=== PATIENT | male | born 1960 | race Caucasian/White ===

== ENCOUNTER → 2017-10-19 | Outpatient (REF) | payer OTHER | LOC: M LAB REF 13:12 | PROVIDERS: ATTEND Internal Medicine Medical Oncology | DX: C91.10 Chronic lymphocytic leukemia of B-cell type not having achieved remission (principal) ==

== ENCOUNTER → 2018-02-08 | Outpatient (CLI) | payer OTHER ==
[~2018-02-08] MED LIST: GASTROGRAFIN SOLUTION 30ML (Q9963) As Ordered; ISOVUE-370 76% 100ML VIAL (Q9967) As Ordered
[2018-02-08 10:26] LABS: HEMATOCRIT 43.7 % (42.0-52.0); HEMOGLOBIN 14.7 g/dl (14.0-18.0); MEAN CORPUSCULAR HEMOGLOBIN 30.9 pg (27.0-33.0); MEAN CORPUSCULAR HGB CONC 33.6 g/dl (32.0-36.5); RED BLOOD COUNT 4.75 10^6/uL (4.30-6.10); RED CELL DISTRIBUTION WIDTH 13.2 % (11.5-14.5)
[2018-02-08 10:33] LABS: ADD MANUAL DIFFER YES; DIFF SLIDE NUMBER 177; PLATELET COUNT, AUTOMATED 98 10^3/uL (150-450); POS COUNT POS FLAG; POSITIVE DIFF POS FLAG; POSITIVE MORPH POS FLAG; WHITE BLOOD COUNT 69.9 10^3/uL (4.0-10.0)
[2018-02-08 10:40] LABS: IMMATURE PLATELET FRACTION % 10.2 % (0.0-10.9)
[2018-02-08 10:54] LABS: ALBUMIN 4.1 GM/DL (3.2-5.2); ALBUMIN/GLOBULIN RATIO 1.95 (1.00-1.93); ALKALINE PHOSPHATASE 51 U/L (45-117); ALT/SGPT 21 U/L (12-78); ANION GAP 6 MEQ/L (8-16); AST/SGOT 15 U/L (7-37); BILIRUBIN,TOTAL 0.4 MG/DL (0.2-1.0); BLOOD UREA NITROGEN 13 MG/DL (7-18); CALCIUM LEVEL 8.3 MG/DL (8.8-10.2); CARBON DIOXIDE LEVEL 26 MEQ/L (21-32); CHLORIDE LEVEL 112 MEQ/L (98-107); CREATININE FOR GFR 0.98 MG/DL (0.70-1.30); GLOMERULAR FILTRATION RATE > 60.0 (>49); GLUCOSE, FASTING 89 MG/DL (70-100); LDH LACTATE DEHYDROGENASE 176 U/L (87-241); POTASSIUM SERUM 4.8 MEQ/L (3.5-5.1); SODIUM LEVEL 144 MEQ/L (136-145); TOTAL PROTEIN 6.2 GM/DL (6.4-8.2)
[2018-02-08 10:56] LABS: ATYPICAL LYMPH 10 % (0-5); LYMPHOCYTES 70 % (16-52); MONOCYTES 7 % (0-8); NEUTROPHILS 13 % (35-75)
[2018-02-08 10:57] LABS: ANISOCYTOSIS 1+; PLATELET ESTIMATE DECREASED (NORMAL)
[2018-02-08 11:01] LABS: SMUDGE CELLS 1+
== END ==
LOC: M LAB 09:00
DX: C91.00 Acute lymphoblastic leukemia not having achieved remission (principal); R16.2 Hepatomegaly with splenomegaly, not elsewhere classified; K57.30 Diverticulosis of large intestine without perforation or abscess without bleeding; N40.0 Benign prostatic hyperplasia without lower urinary tract symptoms
CPT/HCPCS: Q9963

== ENCOUNTER → 2018-02-08 | Outpatient (CLI) | payer OTHER | LOC: M LAB 09:23 | DX: C91.10 Chronic lymphocytic leukemia of B-cell type not having achieved remission (principal) ==

== ENCOUNTER → 2018-02-16 | Outpatient (CLI) | payer OTHER ==
[2018-02-16 07:05] LABS: ESTIMATED AVERAGE GLUCOSE 120 MG/DL (60-110); HEMOGLOBIN A1c 5.8 %
[2018-02-16 07:15] LABS: ALBUMIN 3.9 GM/DL (3.2-5.2); ALKALINE PHOSPHATASE 52 U/L (45-117); ALT/SGPT 16 U/L (12-78); ANION GAP 4 MEQ/L (8-16); AST/SGOT 14 U/L (7-37); BILIRUBIN,TOTAL 0.4 MG/DL (0.2-1.0); BLOOD UREA NITROGEN 17 MG/DL (7-18); CALCIUM LEVEL 8.1 MG/DL (8.8-10.2); CARBON DIOXIDE LEVEL 28 MEQ/L (21-32); CHLORIDE LEVEL 112 MEQ/L (98-107); CHOLESTEROL LEVEL 218 MG/DL (<200); CHOLESTEROL RISK RATIO 5.317 (<5); CREATININE FOR GFR 1.09 MG/DL (0.70-1.30); GLOMERULAR FILTRATION RATE > 60.0 (>49); GLUCOSE, FASTING 101 MG/DL (70-100); HDL CHOLESTEROL 41 MG/DL (>40); LDL CHOLESTEROL 140.8 MG/DL (<100); NON-HDL-C 177 MG/DL; POTASSIUM SERUM 4.7 MEQ/L (3.5-5.1); SODIUM LEVEL 144 MEQ/L (136-145); TOTAL PROTEIN 6.2 GM/DL (6.4-8.2); TRIGLYCERIDES LEVEL 181 MG/DL (<150)
[2018-02-16 09:39] LABS: TOTAL 25(OH) VITAMIN D 10.8 NG/ML (30.0-100.0)
== END ==
LOC: M LAB 06:13
DX: D64.9 Anemia, unspecified (principal); R53.83 Other fatigue; E03.9 Hypothyroidism, unspecified
CPT/HCPCS: 84443

== ENCOUNTER 2019-01-16 16:44 | Outpatient (CLI) | payer OTHER ==
[~2019-01-16] VITALS: Ht 170.2 cm; Wt 76.0 kg
[~2019-01-16 16:44] MED LIST changes: +ACETAMINOPHEN TAB 650MG DOSE (2X325MG) PO SCH; -GASTROGRAFIN SOLUTION 30ML (Q9963) As Ordered; +IMBR420T PO; -ISOVUE-370 76% 100ML VIAL (Q9967) As Ordered; +LOSA100T50 PO; +LOSA50TA88 PO; +MOBI4TAB PO; +PRED20TA PO; +PROTPAK PO; +ZYLO300T6 PO; +diphenhydrAMINE 25 MG CAP PO SCH
[2019-01-16 17:34] VITALS: BP 177/80
[2019-01-16 20:00] VITALS: BP 138/65
[2019-01-16 20:55] VITALS: BP 159/70
== END 2019-01-16 20:56 | disposition home or self-care (01) ==
LOC: M INFU 16:44 → M MS4PR 16:48 → M INFU 20:55
PROVIDERS: ATTEND Internal Medicine Hematology & Oncology
DX: C91.10 Chronic lymphocytic leukemia of B-cell type not having achieved remission (principal)
CPT/HCPCS: 36430; G0463; P9034

== ENCOUNTER 2019-02-16 09:21 | Emergency (ER) | payer OTHER ==
[~2019-02-16] VITALS: Ht 170.2 cm; Wt 80.0 kg
[~2019-02-16 09:21] MED LIST changes: -ACETAMINOPHEN TAB 650MG DOSE (2X325MG) PO SCH; -diphenhydrAMINE 25 MG CAP PO SCH
[2019-02-16] MEDS ORDERED: hydroCHLOROthiazide 25 MG TAB PO ONE (10:00)
[2019-02-16] MEDS ORDERED: hydrALAZINE INJ 20 MG/ML VIAL IV ONE (10:00)
[2019-02-16 10:04] VITALS: BP 208/90
[2019-02-16 10:23] LABS: HEMATOCRIT 44.3 % (42.0-52.0); HEMOGLOBIN 12.4 g/dl (13.5-17.5); MEAN CORPUSCULAR VOLUME 103.7 fl (80.0-96.0); RED BLOOD COUNT 4.27 10^6/uL (4.30-6.10)
[2019-02-16 10:33] LABS: INR 1.02; PROTHROMBIN TIME 13.5 SECONDS (12.1-14.4)
--- NOTE | 2019-02-16 10:47 | REP ---
CHEST TWO VIEWS: COMPARISON: 05/06/2016 There is no evidence of acute infiltrate or pulmonary edema. The heart and mediastinum are within normal limits. Visualized osseous structures appear intact. IMPRESSION: No active pulmonary disease. Electronically Signed by Keron Mendez MD 02/16/2019 07:52 P
[2019-02-16 10:55] LABS: PLATELET COUNT, AUTOMATED 56 10^3/uL (150-450)
[2019-02-16 10:56] LABS: ALBUMIN 3.5 GM/DL (3.2-5.2); ALT/SGPT 23 U/L (12-78); BILIRUBIN,DIRECT 0.1 MG/DL (0.0-0.2); BILIRUBIN,TOTAL 0.6 MG/DL (0.2-1.0); BLOOD UREA NITROGEN 24 MG/DL (7-18); CALCIUM LEVEL 7.8 MG/DL (8.8-10.2); CARBON DIOXIDE LEVEL 25 MEQ/L (21-32); CHLORIDE LEVEL 106 MEQ/L (98-107); CPK CREATINE PHOSPHOKINASE 56 U/L (39-308); GLOMERULAR FILTRATION RATE > 60.0 (>49); GLUCOSE, FASTING 167 MG/DL (70-100); MB/CK RELATIVE INDEX 2.86 (< OR =4); POTASSIUM SERUM 4.7 MEQ/L (3.5-5.1); SODIUM LEVEL 140 MEQ/L (136-145); TROPONIN I 0.03 NG/ML (< 0.10); WHITE BLOOD COUNT 397.4 10^3/uL (4.0-10.0)
[2019-02-16 11:06] LABS: LYMPHOCYTES 96 % (16-52); NEUTROPHILS 4 % (35-75)
[2019-02-16 11:07] LABS: PLATELET ESTIMATE MARKED DECREASE (NORMAL); SMUDGE CELLS 2+
[2019-02-16 11:08] LABS: ANISOCYTOSIS 2+
[2019-02-16 12:30] VITALS: BP 152/69
[2019-02-16] MEDS ORDERED: ZYLO300T6 PO (14:19)
--- NOTE | 2019-02-17 07:25 | ECGEPIP ---
Stationary ECG Study [facility] [place] - ED Test Date: 2019-02-16 Pat Name: ALBERT LEY Department: Room: - Gender: M [employer] [facility] [facility]: TC : 1960 Requested By: GERRY Hutchinson Order Number: [id number] Reading MD: Paulie Alexadner Measurements Intervals [place] Rate: 59 P: 57 AR: 132 QRS: 27 QRSD: 88 T: 17 QT: 400 QTc: 397 Interpretive Statements SINUS BRADYCARDIA POSSIBLE LEFT ATRIAL ENLARGEMENT SIMILAR TO 05/06/16 Electronically Signed On 02-17-2019 7:25:39 EDT by Paulie Alexander
[2019-03-02] MEDS ORDERED: PRED20TA PO (11:22)
== END 2019-02-16 13:46 | disposition home or self-care (01) ==
LOC: M ED 09:21
DX: I10 Essential (primary) hypertension (principal); R00.1 Bradycardia, unspecified; Z85.6 Personal history of leukemia; D64.9 Anemia, unspecified; Z87.891 Personal history of nicotine dependence; Z79.899 Other long term (current) drug therapy; Z88.0 Allergy status to penicillin

== ENCOUNTER 2019-03-03 09:02 | Outpatient (CLI) | payer OTHER ==
[~2019-03-03] VITALS: Ht 170.2 cm; Wt 77.3 kg
[2019-03-03 09:50] VITALS: BP 172/90
[2019-03-03] MEDS ORDERED: ACETAMINOPHEN TAB 650MG DOSE (2X325MG) PO ONE (10:30)
[2019-03-03] MEDS ORDERED: diphenhydrAMINE 25 MG CAP PO ONE (10:30)
[2019-03-03] MEDS ORDERED: IMMUNE GLOBULIN 10% 40 GM in APPROPRIATE DILUENT 1 EA IV ONE (11:00)
[2019-03-03] MEDS ORDERED: IMMUNE GLOBULIN 10% 20 GM in APPROPRIATE DILUENT 1 EA IV ONE (11:00)
[2019-03-03] MEDS ORDERED: IMMUNE GLOBULIN 10% 5 GM in APPROPRIATE DILUENT 1 EA IV ONE (11:00)
[2019-03-03] MEDS ORDERED: IMMUNE GLOBULIN 10% 10 GM in APPROPRIATE DILUENT 1 EA IV ONE (11:00)
== END 2019-03-03 16:44 | disposition home or self-care (01) ==
LOC: M OPCLI4PV 09:02 → M MSPAV 09:03 → M OPCLI4PV 16:44
PROVIDERS: ATTEND Internal Medicine Hematology & Oncology
DX: D64.9 Anemia, unspecified (principal); C91.10 Chronic lymphocytic leukemia of B-cell type not having achieved remission; Z88.0 Allergy status to penicillin
CPT/HCPCS: 96374; 96376; J1459

== ENCOUNTER 2019-03-04 09:08 | Outpatient (CLI) | payer OTHER ==
[2019-03-04] VITALS (8 sets, daily range): BP systolic 144–150; BP diastolic 75–78
[2019-03-04] MEDS ORDERED: diphenhydrAMINE 25 MG CAP PO ONE (09:30)
[2019-03-04] MEDS ORDERED: ACETAMINOPHEN TAB 650MG DOSE (2X325MG) PO ONE (09:30)
[2019-03-04] MEDS ORDERED: IMMUNE GLOBULIN 10% 10 GM in APPROPRIATE DILUENT 1 EA IV ONE (10:00)
[2019-03-04] MEDS ORDERED: IMMUNE GLOBULIN 10% 40 GM in APPROPRIATE DILUENT 1 EA IV ONE (10:00)
[2019-03-04] MEDS ORDERED: IMMUNE GLOBULIN 10% 20 GM in APPROPRIATE DILUENT 1 EA IV ONE (10:00)
[2019-03-04] MEDS ORDERED: IMMUNE GLOBULIN 10% 5 GM in APPROPRIATE DILUENT 1 EA IV ONE (10:00)
== END 2019-03-04 17:30 | disposition home or self-care (01) ==
LOC: M OPCLI4PV 09:08 → M MS5PR 09:10 → M OPCLI4PV 17:30
PROVIDERS: ATTEND Internal Medicine Hematology & Oncology
DX: D64.9 Anemia, unspecified (principal); C91.10 Chronic lymphocytic leukemia of B-cell type not having achieved remission; Z88.0 Allergy status to penicillin
CPT/HCPCS: 96374; 96376; J1459

== ENCOUNTER 2019-04-10 06:57 | Outpatient (CLI) | payer OTHER ==
[2019-04-10] VITALS (8 sets, daily range): BP systolic 148–178; BP diastolic 68–84
[~2019-04-10] VITALS: Ht 170.2 cm; Wt 79.6 kg
[~2019-04-10 06:57] MED LIST changes: +IMBR1CAP PO; +METO25TA4 PO
[2019-04-10] MEDS ORDERED: ACETAMINOPHEN TAB 650MG DOSE (2X325MG) PO ONE (07:15)
[2019-04-10] MEDS ORDERED: diphenhydrAMINE 25 MG CAP PO ONE (07:15)
[2019-04-10] MEDS ORDERED: IMMUNE GLOBULIN 10% 10 GM in APPROPRIATE DILUENT 1 EA IV ONE ×12 (08:00)
[2019-04-10] MEDS ORDERED: IMMUNE GLOBULIN 10% 5 GM in APPROPRIATE DILUENT 1 EA IV ONE ×8 (08:00)
== END 2019-04-10 13:45 | disposition home or self-care (01) ==
LOC: M INFU 06:57
PROVIDERS: ATTEND Internal Medicine Hematology & Oncology
DX: C91.10 Chronic lymphocytic leukemia of B-cell type not having achieved remission (principal)
CPT/HCPCS: 96365; 96366; J1459

== ENCOUNTER 2019-04-11 06:40 | Outpatient (CLI) | payer OTHER ==
[2019-04-11] VITALS (8 sets, daily range): BP systolic 141–178; BP diastolic 65–84
[~2019-04-11] VITALS: Ht 165.1 cm; Wt 79.6 kg
[2019-04-11] MEDS ORDERED: ACETAMINOPHEN TAB 650MG DOSE (2X325MG) PO ONE (07:00)
[2019-04-11] MEDS ORDERED: diphenhydrAMINE 25 MG CAP PO ONE (07:00)
[2019-04-11] MEDS ORDERED: IMMUNE GLOBULIN 10% 20GM 200ML 80 GM in APPROPRIATE DILUENT 1 EA IV ONE (07:00)
== END 2019-04-11 12:45 | disposition home or self-care (01) ==
LOC: M INFU 06:40
PROVIDERS: ATTEND Internal Medicine Hematology & Oncology
DX: C91.10 Chronic lymphocytic leukemia of B-cell type not having achieved remission (principal); Z79.899 Other long term (current) drug therapy
CPT/HCPCS: 96365; 96366; J1569

== ENCOUNTER 2019-05-15 09:49 | Outpatient (CLI) | payer OTHER ==
[~2019-05-15] VITALS: Ht 170.2 cm; Wt 80.7 kg
[2019-05-15] VITALS (7 sets, daily range): BP systolic 118–185; BP diastolic 58–76
[~2019-05-15 09:49] MED LIST changes: +AMLO10TA5 PO
[2019-05-15] MEDS ORDERED: IMMUNE GLOBULIN 10% 20 GM in APPROPRIATE DILUENT 1 EA IV ONE ×6 (10:00)
[2019-05-15] MEDS ORDERED: IMMUNE GLOBULIN 10% 10 GM in APPROPRIATE DILUENT 1 EA IV ONE ×4 (10:00)
[2019-05-15] MEDS ORDERED: ACETAMINOPHEN TAB 650MG DOSE (2X325MG) PO ONE (10:00)
[2019-05-15] MEDS ORDERED: diphenhydrAMINE 25 MG CAP PO ONE (10:00)
== END 2019-05-15 16:10 | disposition home or self-care (01) ==
LOC: M INFU 09:49
PROVIDERS: ATTEND Internal Medicine Hematology & Oncology
DX: C91.10 Chronic lymphocytic leukemia of B-cell type not having achieved remission (principal)
CPT/HCPCS: 96365; 96366; J1459

== ENCOUNTER 2019-05-16 09:13 | Outpatient (CLI) | payer OTHER ==
[2019-05-16] VITALS (8 sets, daily range): BP systolic 132–171; BP diastolic 67–78
[~2019-05-16] VITALS: Ht 170.2 cm; Wt 80.7 kg
[2019-05-16] MEDS ORDERED: diphenhydrAMINE 25 MG CAP PO ONE (10:00)
[2019-05-16] MEDS ORDERED: IMMUNE GLOBULIN 10% 10 GM in APPROPRIATE DILUENT 1 EA IV ONE ×12 (10:00→11:00)
[2019-05-16] MEDS ORDERED: ACETAMINOPHEN TAB 650MG DOSE (2X325MG) PO ONE (10:00)
[2019-05-16] MEDS ORDERED: IMMUNE GLOBULIN 10% 20 GM in APPROPRIATE DILUENT 1 EA IV ONE ×10 (10:00→11:00)
[2019-05-16] MEDS ORDERED: IMMUNE GLOBULIN 10% 5 GM in APPROPRIATE DILUENT 1 EA IV ONE ×4 (11:00)
[2019-05-24] MEDS ORDERED: IMBR1CAP PO (09:01)
== END 2019-05-16 16:20 | disposition home or self-care (01) ==
LOC: M INFU 09:13
PROVIDERS: ATTEND Internal Medicine Hematology & Oncology
DX: C91.10 Chronic lymphocytic leukemia of B-cell type not having achieved remission (principal); D72.820 Lymphocytosis (symptomatic)
CPT/HCPCS: 96365; 96366; J1459

== ENCOUNTER 2019-06-05 13:19 | Emergency (ER) | payer OTHER ==
[~2019-06-05] VITALS: Ht 170.2 cm; Wt 79.5 kg
[2019-06-05 14:43] VITALS: BP 199/93
[2019-06-05] MEDS ORDERED: PANTOPRAZOLE 40MG INJ (PROTONIX) (C9113) IV ONE (15:30)
[2019-06-05] MEDS ORDERED: NS 1,000 ML IV ONE ×2 (15:30→17:30)
[2019-06-05] MEDS ORDERED: ONDANSETRON 4MG/2ML VIAL (J2405) IV ONE (15:30)
[2019-06-05 15:59] LABS: HEMATOCRIT 38.5 % (42.0-52.0); HEMOGLOBIN 13.3 g/dl (13.5-17.5); MEAN CORPUSCULAR HEMOGLOBIN 32.4 pg (27.0-33.0); MEAN CORPUSCULAR HGB CONC 34.5 g/dl (32.0-36.5); MEAN CORPUSCULAR VOLUME 93.7 fl (80.0-96.0); RED BLOOD COUNT 4.11 10^6/uL (4.30-6.10)
[2019-06-05 16:01] LABS: PLATELET COUNT, AUTOMATED 46 10^3/uL (150-450); WHITE BLOOD COUNT 10.1 10^3/uL (4.0-10.0)
[2019-06-05 16:11] LABS: INR 1.09; PROTHROMBIN TIME 13.8 SECONDS (11.8-14.0)
[2019-06-05 16:17] LABS: ALBUMIN 3.4 GM/DL (3.2-5.2); BILIRUBIN,DIRECT 0.1 MG/DL (0.0-0.2); BILIRUBIN,TOTAL 0.4 MG/DL (0.2-1.0); CALCIUM LEVEL 8.6 MG/DL (8.8-10.2); CREATININE FOR GFR 1.86 MG/DL (0.70-1.30); GLOMERULAR FILTRATION RATE 39.5 (>49); POTASSIUM SERUM 4.1 MEQ/L (3.5-5.1); TOTAL PROTEIN 6.9 GM/DL (6.4-8.2)
[2019-06-05 16:26] LABS: ATYPICAL LYMPH 3 % (0-5); BASOPHILS 1 % (0-4); EOSINOPHILS 3 % (0-5); LYMPHOCYTES 56 % (16-52); MONOCYTES 4 % (0-8); NEUTROPHILS 32 % (35-75)
[2019-06-05 16:27] LABS: PLATELET ESTIMATE MARKED DECREASE (NORMAL); SMUDGE CELLS 1+
--- NOTE | 2019-06-05 16:59 | REP ---
ABDOMINAL SERIES: Supine and erect views of the abdomen demonstrate no evidence of free intraperitoneal air and no definite evidence for obstruction. No significantly dilated small bowel loops are seen. There appear to be phleboliths in the pelvis. An accompanying view of the chest demonstrates no acute infiltrate. Heart is normal in size and the mediastinal silhouette is unremarkable. The spleen is enlarged measuring approximately 19 cm in length, and the liver also appears somewhat enlarged measuring between 18 and 19 cm in length. IMPRESSION: No evidence of free air and no evidence for small bowel obstruction. No infiltrate is seen in either lung. The spleen is enlarged measuring approximately 19 cm in length, and the liver also appears somewhat enlarged measuring between 18 and 19 cm in length. Electronically Signed by Keron Mendez MD 06/08/2019 10:01 A
[2019-06-05] MEDS ORDERED: ZOFR4TAB16 PO (18:28)
--- NOTE | 2019-06-06 03:37 | ECGEPIP ---
[facility] - ED Test Date: 2019-06-05 Pat Name: ALBERT LEY Department: Room: - Gender: Male [employer] Correspondent: delmi : 1960 Requested By: ZAYDA VILLARREAL Order Number: [id number] Reading MD: Paulie Alexander Measurements Intervals [place] Rate: 61 P: 22 MT: 105 QRS: 30 QRSD: 97 T: 14 QT: 415 QTc: 418 Interpretive Statements SINUS RHYTHM WITH SHORT MT INTERVAL POSSIBLE LEFT ATRIAL ENLARGEMENT SIMILAR TO 02/16/19 Electronically Signed on 06-06-2019 3:37:20 EDT by Paulie Alexander
--- NOTE | 2019-06-08 21:08 | ED PDOC ---
Post-Departure Follow-Up yara mayo and latasha faxed formal report of abdl series for fu Blue Chauhan MD Jun 08, 2019 21:08
[2019-06-11] MEDS ORDERED: DECA4TAB PO (10:05)
[2019-06-19] MEDS ORDERED: MECL12.575 PO (09:37)
[2019-06-19] MEDS ORDERED: CIPR0.3S OS (16:49)
== END 2019-06-05 18:49 | disposition home or self-care (01) ==
LOC: M ED 13:19
DX: R11.2 Nausea with vomiting, unspecified (principal); I10 Essential (primary) hypertension; C91.10 Chronic lymphocytic leukemia of B-cell type not having achieved remission; Z79.899 Other long term (current) drug therapy; Z88.0 Allergy status to penicillin; Z87.891 Personal history of nicotine dependence
CPT/HCPCS: 74021; 80048; 80076; 81001; 83605; 83690; 85025; 85049; 85055; 85610; 87040; 87077; 87186; 93005; 93041; 96361; 96374; 96375; 99284; C9113; J2405

== ENCOUNTER → 2019-08-24 | Outpatient (REF) | payer OTHER ==
[~2019-08-24] MED LIST changes: +ATIV1TAB7 PO; +CIPR0.3S OS; +DECA4TAB PO; +MECL12.575 PO; +ZOFR4TAB16 PO
[2019-08-24 11:41] LABS: ALBUMIN 4.2 GM/DL (3.2-5.2); ALT/SGPT 18 U/L (12-78); BILIRUBIN,TOTAL 0.6 MG/DL (0.2-1.0); BLOOD UREA NITROGEN 17 MG/DL (7-18); CALCIUM LEVEL 8.4 MG/DL (8.8-10.2); CARBON DIOXIDE LEVEL 25 MEQ/L (21-32); CHLORIDE LEVEL 107 MEQ/L (98-107); CREATININE FOR GFR 1.25 MG/DL (0.70-1.30); FOLATE 8.4 NG/ML; GLOMERULAR FILTRATION RATE > 60.0 (>49); GLUCOSE, FASTING 100 MG/DL (70-100); POTASSIUM SERUM 4.3 MEQ/L (3.5-5.1); RHEUMATOID FACTOR QUANT < 10.0 IU/ML (<15.0); SODIUM LEVEL 140 MEQ/L (136-145); TOTAL 25(OH) VITAMIN D 21.5 NG/ML (30.0-100.0); TOTAL PROTEIN 6.9 GM/DL (6.4-8.2); VITAMIN B12 LEVEL 555 PG/ML
[2019-08-25 15:10] LABS: ANTINUCLEAR ANTIBODIES DIRECT Negative (Negative)
== END ==
LOC: M LAB REF 10:29
PROVIDERS: ATTEND Psychiatry & Neurology Neurology
DX: R51 Headache (principal); H81.49 Vertigo of central origin, unspecified ear

== ENCOUNTER → 2020-03-19 | Outpatient (CLI) | payer OTHER ==
[~2020-03-19] MED LIST changes: +ALLO100T PO; +CYMB1CAP4 PO; +DEXA2TA PO; +LEUK2TAB8 NG; -MECL12.575 PO; +MECL12.589 PO; +PREG25CA PO; +SODI200S PO; +SODIUM POLYSTYRENE SULFONATE; +VALT1TAB PO; +VENC100T PO; +VENC1TAB PO; +ZOVI5OIN8 TOP; +[UNRECOGNIZED DRUG - CODE] PO
[2020-03-19 14:05] LABS: BASO % 0.4 % (0.0-1.0); HEMATOCRIT 41.5 % (42.0-52.0); HEMOGLOBIN 15.1 g/dl (13.5-17.5); LYMPH # 2.2 10^3/uL (1.5-5.0); LYMPH % 33.1 % (24.0-44.0); MEAN CORPUSCULAR HEMOGLOBIN 31.1 pg (27.0-33.0); MEAN CORPUSCULAR HGB CONC 36.4 g/dl (32.0-36.5); MEAN CORPUSCULAR VOLUME 85.4 fl (80.0-96.0); MONO % 14.7 % (0.0-5.0); NEUTROPHILS # 3.5 10^3/uL (1.5-8.5); NEUTROPHILS % 51.4 % (36.0-66.0); RED BLOOD COUNT 4.86 10^6/uL (4.30-6.10); WHITE BLOOD COUNT 6.7 10^3/uL (4.0-10.0)
[2020-03-19 14:07] LABS: PLATELET COUNT, AUTOMATED 49 10^3/uL (150-450)
[2020-03-19 14:10] LABS: ALBUMIN 3.8 GM/DL (3.2-5.2); ALT/SGPT 24 U/L (12-78); BILIRUBIN,TOTAL 0.5 MG/DL (0.2-1.0); BLOOD UREA NITROGEN 18 MG/DL (7-18); CALCIUM LEVEL 8.4 MG/DL (8.8-10.2); CARBON DIOXIDE LEVEL 30 MEQ/L (21-32); CHLORIDE LEVEL 107 MEQ/L (98-107); CREATININE FOR GFR 1.19 MG/DL (0.70-1.30); GLOMERULAR FILTRATION RATE > 60.0 (>49); GLUCOSE, FASTING 94 MG/DL (70-100); LDH LACTATE DEHYDROGENASE 134 U/L (87-241); POTASSIUM SERUM 4.6 MEQ/L (3.5-5.1); SODIUM LEVEL 141 MEQ/L (136-145); TOTAL PROTEIN 6.2 GM/DL (6.4-8.2); URIC ACID 6.1 MG/DL (3.5-7.2)
== END ==
LOC: M LAB 13:09
PROVIDERS: ATTEND Internal Medicine Hematology
DX: C91.90 Lymphoid leukemia, unspecified not having achieved remission (principal)

== ENCOUNTER → 2020-04-25 | Outpatient (CLI) | payer OTHER ==
[2020-04-25 06:44] LABS: BASO % 0.4 % (0.0-1.0); HEMATOCRIT 41.7 % (42.0-52.0); HEMOGLOBIN 15.1 g/dl (13.5-17.5); LYMPH # 1.8 10^3/uL (1.5-5.0); LYMPH % 24.5 % (24.0-44.0); MEAN CORPUSCULAR HEMOGLOBIN 31.4 pg (27.0-33.0); MEAN CORPUSCULAR HGB CONC 36.2 g/dl (32.0-36.5); MEAN CORPUSCULAR VOLUME 86.7 fl (80.0-96.0); MONO # 1.1 10^3/uL (0.0-0.8); MONO % 15.2 % (0.0-5.0); NEUTROPHILS # 4.3 10^3/uL (1.5-8.5); NEUTROPHILS % 59.1 % (36.0-66.0); PLATELET COUNT, AUTOMATED 63 10^3/uL (150-450); RED BLOOD COUNT 4.81 10^6/uL (4.30-6.10); WHITE BLOOD COUNT 7.3 10^3/uL (4.0-10.0)
[2020-04-25 07:18] LABS: ALBUMIN 3.7 GM/DL (3.2-5.2); ALT/SGPT 32 U/L (12-78); BILIRUBIN,TOTAL 0.6 MG/DL (0.2-1.0); BLOOD UREA NITROGEN 18 MG/DL (7-18); CALCIUM LEVEL 8.3 MG/DL (8.8-10.2); CARBON DIOXIDE LEVEL 26 MEQ/L (21-32); CHLORIDE LEVEL 109 MEQ/L (98-107); CREATININE FOR GFR 1.27 MG/DL (0.70-1.30); GLOMERULAR FILTRATION RATE > 60.0 (>49); GLUCOSE, FASTING 117 MG/DL (70-100); POTASSIUM SERUM 4.3 MEQ/L (3.5-5.1); SODIUM LEVEL 139 MEQ/L (136-145); TOTAL PROTEIN 6.4 GM/DL (6.4-8.2); URIC ACID 7.9 MG/DL (3.5-7.2)
== END ==
LOC: M LAB 06:15
PROVIDERS: ATTEND Internal Medicine Hematology
DX: C91.10 Chronic lymphocytic leukemia of B-cell type not having achieved remission (principal)

== ENCOUNTER → 2020-11-25 | Outpatient (REF) | payer OTHER ==
[~2020-11-25] MED LIST changes: -AMLO10TA5 PO; +AMLO1TAB25 PO; -CIPR0.3S OS; +CIPR0.3S6 OS; -MECL12.589 PO; +MECL12.590 PO; +METO50TA7 PO
== END ==
LOC: M SMT 13:11
PROVIDERS: ATTEND Urology
DX: R97.20 Elevated prostate specific antigen [PSA] (principal)

== ENCOUNTER → 2020-12-10 | Outpatient (CLI) | payer OTHER ==
[2020-12-11 23:16] LABS: PSA TOTAL 14.3 ng/mL (0.0-4.0)
== END ==
LOC: M LAB 07:47
PROVIDERS: ATTEND Urology
DX: R97.20 Elevated prostate specific antigen [PSA] (principal)

== ENCOUNTER → 2021-02-14 | Outpatient (CLI) | payer OTHER ==
[~2021-02-14] MED LIST changes: +MECL-136 PO; -MECL12.590 PO
[2021-02-18 00:07] LABS: PSA TOTAL 10.8 ng/mL (0.0-4.0)
== END ==
LOC: M LAB 09:05
PROVIDERS: ATTEND Urology
DX: R97.20 Elevated prostate specific antigen [PSA] (principal)

== ENCOUNTER → 2021-10-28 | Outpatient (CLI) | payer OTHER ==
[~2021-10-28] MED LIST changes: +LOSA100T45 PO; -LOSA100T50 PO; +LOSA50TA28 PO; -LOSA50TA88 PO; +PROHANCE 279.3MG/ML 15ML VIAL As Ordered ONE; +PROHANCE 279.3MG/ML 5ML VIAL As Ordered ONE
== END ==
LOC: M RAD 16:14
PROVIDERS: ATTEND Specialist
DX: C61 Malignant neoplasm of prostate (principal)
CPT/HCPCS: 72197; A9576

== ENCOUNTER → 2022-05-17 | Outpatient (CLI) | payer OTHER ==
[~2022-05-17] MED LIST changes: -PROHANCE 279.3MG/ML 15ML VIAL As Ordered ONE; -PROHANCE 279.3MG/ML 5ML VIAL As Ordered ONE
== END ==
LOC: M RAD 13:43
PROVIDERS: ATTEND Family Medicine
DX: D64.9 Anemia, unspecified (principal); R53.83 Other fatigue

== ENCOUNTER → 2022-05-21 | Outpatient (REF) | payer OTHER ==
[2022-05-21 09:08] LABS: CHOLESTEROL RISK RATIO 4.523 (<5); THYROID STIMULATING HORMONE 1.78 uIU/ML (0.358-3.740)
[2022-05-21 09:36] LABS: HEMOGLOBIN A1c 5.2 %
== END ==
LOC: M LAB REF 08:03
PROVIDERS: ATTEND Family Medicine
DX: D64.9 Anemia, unspecified (principal); R53.83 Other fatigue

== ENCOUNTER → 2022-10-12 | Outpatient (CLI) | payer OTHER | LOC: M RAD 14:49 | PROVIDERS: ATTEND Family Medicine | DX: M54.30 Sciatica, unspecified side (principal); M25.78 Osteophyte, vertebrae ==

== ENCOUNTER → 2023-08-12 | Outpatient (CLI) | payer MEDICARE, OTHER ==
[~2023-08-12] MED LIST changes: +CIPR0.3S37 OS; -CIPR0.3S6 OS; -LOSA100T45 PO; +LOSA100T46 PO; +VALA1TAB5 PO; +VENTAER INH
== END ==
LOC: M PLAIMG 09:55
PROVIDERS: ATTEND Nurse Practitioner
DX: C91.10 Chronic lymphocytic leukemia of B-cell type not having achieved remission (principal)

== ENCOUNTER → 2024-08-16 | Outpatient (CLI) | payer MEDICARE, OTHER ==
[~2024-08-16] MED LIST changes: +GASTROGRAFIN SOLUTION 30ML As Ordered ONE; +ISOVUE-370 76% 100ML VIAL As Ordered ONE; +MECL-86 PO
== END ==
LOC: M RAD 10:57
PROVIDERS: ATTEND Specialist
DX: C85.90 Non-Hodgkin lymphoma, unspecified, unspecified site (principal); R59.0 Localized enlarged lymph nodes
CPT/HCPCS: 71260; 74177; Q9963; Q9967

== ENCOUNTER → 2025-03-19 | Outpatient (CLI) | payer MEDICARE, OTHER ==
[~2025-03-19] MED LIST changes: +ACAL100T PO; +ASPI81TA26 PO; +ATOR80TA59 PO; +CLOP75TA2 PO; -GASTROGRAFIN SOLUTION 30ML As Ordered ONE; -ISOVUE-370 76% 100ML VIAL As Ordered ONE
== END ==
LOC: M PLARAD 11:22
PROVIDERS: ATTEND Student in an Organized Health Care Education/Training Program
DX: C91.10 Chronic lymphocytic leukemia of B-cell type not having achieved remission (principal)
CPT/HCPCS: 78815; A9552

== ENCOUNTER → 2025-03-26 | Outpatient (CLI) | payer MEDICARE, OTHER ==
[~2025-03-26] MED LIST changes: -PREG25CA PO; +PREG25CA63 PO
== END ==
LOC: M RAD 11:45
PROVIDERS: ATTEND Psychiatry & Neurology Neurology
DX: I65.22 Occlusion and stenosis of left carotid artery (principal); I63.9 Cerebral infarction, unspecified

== ENCOUNTER → 2025-10-22 | Outpatient (CLI) | payer MEDICARE, OTHER ==
[~2025-10-22] MED LIST changes: +DEBR6.5S4 OTIC
== END ==
LOC: M RAD 09:09
DX: M25.511 Pain in right shoulder (principal); Z87.81 Personal history of (healed) traumatic fracture